=== PATIENT | female | born 1990 | race Caucasian/White ===

== ENCOUNTER 2023-08-10 19:01 | Inpatient (IN) | payer OTHER ==
[~2023-08-10] VITALS: Ht 154.9 cm; Wt 79.3 kg
[2023-08-10 19:35] VITALS: BP 135/83
[2023-08-10] MEDS ORDERED: LACTATED RINGER'S 1000 ML IV STA (19:53)
[2023-08-10] MEDS ORDERED: CARBOPROST TROMETHAMINE 250 MCG/ML AMP IM PRN (19:55)
[2023-08-10] MEDS ORDERED: OXYTOCIN INJ 10UNITS/ML 1ML VIAL IM PRN (19:55)
[2023-08-10] MEDS ORDERED: LIDOCAINE 1% MDV 20ML VIAL INFIL PRN (19:55)
[2023-08-10] MEDS ORDERED: TRANEXAMIC ACID INJection 1,000 MG in NS 100 ML IV PRN (19:55)
[2023-08-10] MEDS ORDERED: METHYLERGONOVINE MALEATE 0.2MG/ML 1ML VIAL IM PRN (19:55)
[2023-08-10] MEDS ORDERED: OXYTOCIN DRIP 30 UNITS in IV 1 EA IV PRN ×6 (19:55)
[2023-08-10 20:12] VITALS: BP 131/82
[2023-08-10] MEDS: miSOPROStol 50MCG 1/2 TABLET PO SCH (20:12)
[2023-08-10 20:42] VITALS: BP 122/74
[2023-08-10 20:49] LABS: HEMOGLOBIN 12.7 g/dl (12.0-15.5); MEAN CORPUSCULAR HEMOGLOBIN 28.6 pg (27.0-33.0); MEAN CORPUSCULAR HGB CONC 33.4 g/dl (32.0-36.5); MEAN CORPUSCULAR VOLUME 85.6 fl (80.0-96.0); PLATELET COUNT, AUTOMATED 299 10^3/uL (150-450); RED BLOOD COUNT 4.44 10^6/uL (4.00-5.40)
[2023-08-10 21:12] VITALS: BP 137/75
[2023-08-11] VITALS (35 sets, daily range): BP systolic 99–168; BP diastolic 55–86; O2SAT 97–98
[2023-08-11] MEDS ORDERED: PROMETHAZINE 25MG/ML 1ML VIAL IV ONE (00:45)
[2023-08-11] MEDS ORDERED: NALBUPHINE HCL 1MG/0.1ML (100MG/10ML) MDV IV PRN (00:45)
[2023-08-11] MEDS: miSOPROStol 50MCG 1/2 TABLET PO SCH (00:58)
[2023-08-11] MEDS: LR 1,000 ML IV SCH ×2 (01:00→05:07)
[2023-08-11] MEDS ORDERED: NALOXONE INJ 0.4MG/1ML VIAL IV PRN (03:55)
[2023-08-11] MEDS ORDERED: EPIDURAL/PCA KEYS XX PRN (03:55)
[2023-08-11] MEDS ORDERED: FENTANYL/ROPIVACAINE/NACL BAG 100 ML EPIDURAL SCH (03:55)
[2023-08-11] MEDS ORDERED: ePHEDrine SULFATE 25 MG/5 ML(5MG/ML) SYRINGE IVP PRN (03:55)
[2023-08-11] MEDS ORDERED: LR 500 ML IV PRN (03:55)
[2023-08-11] MEDS ORDERED: ONDANSETRON 4MG 2ML VIAL IV PRN (03:55)
[2023-08-11] MEDS ORDERED: diphenhydrAMINE 50MG/ML VIAL IV PRN (03:55)
[2023-08-11] MEDS ORDERED: PROMETHAZINE 25 MG TAB PO PRN (07:05)
[2023-08-11] MEDS ORDERED: DOCUSATE SODIUM 100MG CAPSULE PO PRN (07:05)
[2023-08-11] MEDS ORDERED: LR 1,000 ML IV SCH (07:05)
[2023-08-11] MEDS ORDERED: METHYLERGONOVINE MALEATE 0.2 MG TAB PO PRN (07:05)
[2023-08-11] MEDS ORDERED: ACETAMINOPHEN 500 MG TAB PO PRN (07:05)
[2023-08-11] MEDS ORDERED: IBUPROFEN 800 MG TAB PO PRN (07:05)
[2023-08-11] MEDS ORDERED: RHOGAM 300MCG (1500IU) INJ IM SCH (07:05)
[2023-08-11] MEDS ORDERED: MOM 30ML SUSPENSION UDC PO PRN (07:05)
[2023-08-11] MEDS ORDERED: OXYTOCIN DRIP 30 UNITS in IV 1 EA IV SCH ×4 (07:05)
[2023-08-11] MEDS: IBUPROFEN 600MG TAB PO PRN ×2 (09:05→19:46)
[2023-08-11] MEDS: PRENATAL VITAMINS CHEWABLE TABLET PO SCH (09:05)
[2023-08-11] MEDS ORDERED: PRENTAB9 PO (14:17)
[2023-08-11] MEDS ORDERED: HOME MED LIST COMPLETE! XX SCH (14:20)
[2023-08-11] MEDS: METHYLERGONOVINE MALEATE 0.2 MG TAB PO SCH ×2 (15:52→22:03)
[2023-08-11] MEDS: DIBUCAINE 1% OINTMENT 30GM TOP PRN (19:47)
[2023-08-12] MEDS: METHYLERGONOVINE MALEATE 0.2 MG TAB PO SCH ×2 (04:18→10:49)
[2023-08-12] MEDS: ACETAMINOPHEN TAB 650MG DOSE (2X325MG) PO PRN (04:22)
[2023-08-12 06:00] VITALS: BP 104/58; O2SAT 98
[2023-08-12 06:35] LABS: HEMATOCRIT 35.3 % (36.0-47.0); HEMOGLOBIN 11.6 g/dl (12.0-15.5); MEAN CORPUSCULAR HEMOGLOBIN 28.6 pg (27.0-33.0); MEAN CORPUSCULAR HGB CONC 32.9 g/dl (32.0-36.5); MEAN CORPUSCULAR VOLUME 87.2 fl (80.0-96.0); PLATELET COUNT, AUTOMATED 250 10^3/uL (150-450); RED BLOOD COUNT 4.05 10^6/uL (4.00-5.40)
[2023-08-12] MEDS: PRENATAL VITAMINS CHEWABLE TABLET PO SCH (09:06)
[2023-08-12 18:00] VITALS: BP 128/80; O2SAT 98
[2023-08-13] MEDS: ACETAMINOPHEN TAB 650MG DOSE (2X325MG) PO PRN (00:11)
[2023-08-13 06:00] VITALS: BP 121/73; O2SAT 98
[2023-08-13] MEDS: DIBUCAINE 1% OINTMENT 30GM TOP PRN (07:49)
[2023-08-13] MEDS: PRENATAL VITAMINS CHEWABLE TABLET PO SCH (07:49)
[2023-08-13] MEDS ORDERED: MEASLES,MUMPS,RUBELLA VACCINE INJ (MMR-II) SC.IMMUN ONE (09:00)
== END 2023-08-13 13:32 | disposition home or self-care (01) | DRG 807 ==
LOC: M LDO 19:01 → M LDI 19:54 → M OBS 08-11 10:33
PROVIDERS: ADMIT Obstetrics & Gynecology; ATTEND Obstetrics & Gynecology
PROC: 10E0XZZ Delivery of Products of Conception, External Approach (ICD-10-PCS; principal; 2023-08-11)
PROC: 0KQM0ZZ Repair Perineum Muscle, Open Approach (ICD-10-PCS; 2023-08-11)
DX: O42.02 Full-term premature rupture of membranes, onset of labor within 24 hours of rupture (principal); Z37.0 Single live birth; Z3A.39 39 weeks gestation of pregnancy; O69.81X0 Labor and delivery complicated by cord around neck, without compression, not applicable or unspecified; O70.1 Second degree perineal laceration during delivery